=== PATIENT | female | born 1960 | race Caucasian/White ===

== ENCOUNTER → 2016-12-15 | Outpatient (CLI) | payer OTHER ==
--- NOTE | 2016-12-15 17:14 | Diagnostic Imaging Report ---
Bilateral screening mammogram The current study was also evaluated with a Computer Aided Detection (CAD) system. INDICATION: Screening. No current complaints stated on the questionnaire. COMPARISON: 11/14/2013. FINDINGS: The breasts are composed of heterogeneously dense parenchyma which may decrease mammographic sensitivity. There are scattered benign-appearing calcifications. Allowing for technique and positional differences, no suspicious change is seen. IMPRESSION: Dense breasts with no definite change. ACR BI-RADS Category 2: Benign findings. Result letter will be mailed to the patient. Note: At least 10% of breast cancer is not imaged by mammography. Dictated by: Dictated on workstation # [id number]
== END ==
LOC: RAD 09:56
PROVIDERS: ATTEND Nurse Practitioner
DX: Z12.31 Encounter for screening mammogram for malignant neoplasm of breast (principal)
CPT/HCPCS: 77067

== ENCOUNTER → 2018-10-25 | Outpatient (CLI) | payer SELFPAY ==
--- NOTE | 2018-10-25 19:01 | Diagnostic Imaging Report ---
PROCEDURE: CT head without contrast. TECHNIQUE: Multiple contiguous axial images were obtained through the brain without the use of intravenous contrast. INDICATION: Headaches and dizziness as well as blurred vision. No prior studies are available for comparison. Ventricles and sulci are within normal limits. No sulcal effacement, midline shift or hemorrhage is detected. Cisterns are patent. Visualized paranasal sinuses are clear. IMPRESSION: No acute intracranial process is detected. Dictated by: Dictated on workstation # [id number]
--- NOTE | 2018-10-25 19:01 | Diagnostic Imaging Report ---
PROCEDURE: MRI lumbar spine. TECHNIQUE: Multiplanar, multisequence MRI of the lumbar spine was performed without contrast. INDICATION: Low back pain and bilateral leg pain and numbness. COMPARISON: No prior studies are available for comparison. FINDINGS: Curvature and alignment of the lumbar spine is normal. The vertebral body heights are maintained. No geographic marrow lesion or acute compression fracture is identified. There is some disc desiccation and mild disc space narrowing at L4-5 level. Significant degenerative disc disease at L5-S1 level is seen with complete loss of the disc space as well as desiccation and endplate osteophyte formation. The conus is unremarkable at the L1 level. T12-L1: The central canal and neural foramina are widely patent. L1-2: Unremarkable. L2-3: Unremarkable. L3-4: There is some ligamentous thickening and facet changes present. Central canal remains widely patent. There is some [id number] bilateral neural foraminal narrowing due to broad-based disc/osteophyte complex. L4-5: There are hypertrophic facet changes and ligamentous thickening as well as broad-based disc/osteophyte complex. This does result in moderate central canal stenosis. There is also significant bilateral lateral recess stenosis and moderate left and mild right neural foraminal stenosis. L5-S1: Ligamentous thickening and facet changes with broad-based disc/osteophyte complex result in moderate trefoil stenosis to the canal. There is moderate bilateral lateral recess stenosis with significant bilateral neural foraminal stenosis. The paraspinous tissues are unremarkable. IMPRESSION: Lumbar spondylosis with multilevel central canal, lateral recess, and neural foraminal stenosis at the L4-5 and L5-S1 levels, as described. No acute compression fracture is seen. Dictated by: Dictated on workstation # [id number]
== END ==
LOC: RAD 14:06
PROVIDERS: ATTEND Nurse Practitioner Family
DX: M47.816 Spondylosis without myelopathy or radiculopathy, lumbar region (principal); M48.07 Spinal stenosis, lumbosacral region; H53.8 Other visual disturbances; M51.37 Other intervertebral disc degeneration, lumbosacral region; G43.909 Migraine, unspecified, not intractable, without status migrainosus
CPT/HCPCS: 70450; 72148

== ENCOUNTER → 2019-05-16 | Outpatient (CLI) | payer OTHER ==
--- NOTE | 2019-05-17 13:36 | Diagnostic Imaging Report ---
EXAMINATION: Digital mammogram bilateral screening. INDICATION: Screening. COMPARISON: This study was compared to the prior exams of 12/15/2016, 11/14/2013, and 10/11/2012. At this time, there are no current complaints. The current study was also evaluated with a Computer Aided Detection (CAD) system. 3-D tomosynthesis was also performed and reviewed. FINDINGS: The fibroglandular tissue in both breasts is heterogeneously dense. This does limit the sensitivity of this exam. Overall, there does not appear to have been any significant change when compared to the prior study. No primary or secondary sign of malignancy is noted. 3D tomographic images fail to show any sign of malignancy. IMPRESSION: 1. There is no evidence for malignancy. 2. The patient should have her annual bilateral screening mammogram on schedule in April of 2020. ACR BI-RADS Category 1: Negative. Result letter will be mailed to the patient. Note: At least 10% of breast cancer is not imaged by mammography. Dictated by: Dictated on workstation # [id number]
== END ==
LOC: RAD 09:36
PROVIDERS: ATTEND Obstetrics & Gynecology
DX: Z12.31 Encounter for screening mammogram for malignant neoplasm of breast (principal)
CPT/HCPCS: 77067

== ENCOUNTER 2023-02-12 21:02 | Emergency (ER) | payer SELFPAY ==
[~2023-02-12] VITALS: Ht 162.6 cm; Wt 52.6 kg
[2023-02-12 21:33] LABS: BASOPHILS % (AUTO) 0 % (0-10); EOSINOPHILS % (AUTO) 0 % (0-10); HEMATOCRIT 41 % (35-52); HEMOGLOBIN 13.5 g/dL (11.5-16.0); LYMPHOCYTES # (AUTO) 2.1 10^3/uL (1.0-4.0); LYMPHOCYTES % (AUTO) 29 % (12-44); MEAN CORPUSCULAR HEMOGLOBIN 30 pg (25-34); MEAN CORPUSCULAR HGB CONC 33 g/dL (32-36); MEAN CORPUSCULAR VOLUME 91 fL (80-99); MEAN PLATELET VOLUME 10.2 fL (9.0-12.2); MONOCYTES # (AUTO) 0.5 10^3/uL (0.0-1.0); MONOCYTES % (AUTO) 7 % (0-12); NEUTROPHILS # (AUTO) 4.7 10^3/uL (1.8-7.8); NEUTROPHILS % (AUTO) 64 % (42-75); PLATELET COUNT 339 10^3/uL (130-400); WHITE BLOOD COUNT 7.4 10^3/uL (4.3-11.0)
[2023-02-12 21:41] LABS: ALBUMIN 4.8 GM/DL (3.2-4.5); CHLORIDE 106 MMOL/L (98-107); POTASSIUM 3.7 MMOL/L (3.6-5.0); SODIUM 139 MMOL/L (135-145)
[2023-02-12 21:42] LABS: AMYLASE 54 U/L (25-125); CALCIUM 10.5 MG/DL (8.5-10.1)
[2023-02-12 21:43] LABS: GLUCOSE 105 MG/DL (70-105); TOTAL PROTEIN 7.6 GM/DL (6.4-8.2)
[2023-02-12 21:44] LABS: CARBON DIOXIDE 12 MMOL/L (21-32)
[2023-02-12 21:45] LABS: BILIRUBIN,TOTAL 0.7 MG/DL (0.1-1.0)
[2023-02-12 21:47] LABS: ALKALINE PHOSPHATASE 84 U/L (40-136); CREATININE SERUM 1.17 MG/DL (0.60-1.30); GFR ESTIMATED 53
[2023-02-12 21:48] LABS: BUN/CREATININE RATIO 14
[2023-02-12 21:50] LABS: ALANINE AMINOTRANSFERASE 21 U/L (0-55)
[2023-02-12 21:51] LABS: LIPASE 17 U/L (8-78)
[2023-02-12] MEDS ORDERED: ONDANSETRON 4 MG/2 ML (SDV) Z0FRAN IVP ONE (22:00)
[2023-02-12] MEDS ORDERED: LACTATED RINGERS 1,000 ML IV ONE (22:00)
[2023-02-12 22:09] LABS: CLARITY,URINE CLEAR; COLOR,URINE YELLOW; GLUCOSE, URINE (UA) NEGATIVE (NEGATIVE); KETONES,URINE 3+ (NEGATIVE); LEUKOCYTE ESTERASE ,URINE NEGATIVE (NEGATIVE); NITRITE,URINE NEGATIVE (NEGATIVE); PROTEIN,URINE 2+ (NEGATIVE)
--- NOTE | 2023-02-12 22:26 | ED General ---
General Chief Complaint: Allergic Reaction Stated Complaint: POSS ALLERGIC REACTION Nursing Triage Note: PT AMB TO RM 3 W C/O POSS ALLERGIC REACTION D/T SMELLING LAUNDRY DETERGENT AND WOOD WHILE AT HER MOTHERS HOUSE. PT ADMIN EPI PEN IN R THIGH 20-25 MINS AGO WHEN SHE FELT LIKE HER THROAT WAS CLOSING. PT REPORTS IT IS HARD TO SWALLOW AT THIS TIME, NO RESP DISTRESS NOTED. PT ADDITIONALY C/O ABD PAIN X1 WK. A&OX4. Source of Information: Patient History of Present Illness Date Seen by Provider: Feb 12, 2023 Allergies and Home Medications Allergies Coded Allergies: No Allergy Information Available (Unverified , 02/12/23) Past Qgbxqvu-Kydixm-Lrvdwo Hx Patient Social History Tobacco Use?: No Use of E-Cig and/or Vaping dev: No Substance use?: No Alcohol Use?: No Past Medical History Surgery/Hospitalization HX: ALPHA GAL Physical Exam Vital Signs Vital Signs - First Documented 02/12/23 21:06 Temp 36.6 Pulse 124 Resp 22 B/P (MAP) 121/67 (85) Pulse Ox 98 O2 Delivery Room Air Capillary Refill : Less Than 3 Seconds Height, Weight, BMI Height: '" Weight: lbs. oz. kg; 19.00 BMI Method: Progress/Results/Core Measures Suspected Sepsis SIRS Temperature: Pulse: 124 Respiratory Rate: 22 Laboratory Tests 02/12/23 21:20: White Blood Count 7.4 Blood Pressure 121 /67 Mean: 85 Laboratory Tests 02/12/23 21:20: Creatinine 1.17, Platelet Count 339, Total Bilirubin 0.7 Results/Orders Lab Results Laboratory Tests Test 02/12/23 21:20 02/12/23 22:01 Range/Units White Blood Count 7.4 4.3-11.0 10^3/uL Red Blood Count 4.51 3.80-5.11 10^6/uL Hemoglobin 13.5 11.5-16.0 g/dL Hematocrit 41 35-52 % Mean Corpuscular Volume 91 80-99 fL Mean Corpuscular Hemoglobin 30 25-34 pg Mean Corpuscular Hemoglobin Concent 33 32-36 g/dL Red Cell Distribution Width 11.9 10.0-14.5 % Platelet Count 339 130-400 10^3/uL Mean Platelet Volume 10.2 9.0-12.2 fL Immature Granulocyte % (Auto) 0 % Neutrophils (%) (Auto) 64 42-75 % Lymphocytes (%) (Auto) 29 12-44 % Monocytes (%) (Auto) 7 0-12 % Eosinophils (%) (Auto) 0 0-10 % Basophils (%) (Auto) 0 0-10 % Neutrophils # (Auto) 4.7 1.8-7.8 10^3/uL Lymphocytes # (Auto) 2.1 1.0-4.0 10^3/uL Monocytes # (Auto) 0.5 0.0-1.0 10^3/uL Eosinophils # (Auto) 0.0 0.0-0.3 10^3/uL Basophils # (Auto) 0.0 0.0-0.1 10^3/uL Immature Granulocyte # (Auto) 0.0 0.0-0.1 10^3/uL Sodium Level 139 135-145 MMOL/L Potassium Level 3.7 3.6-5.0 MMOL/L Chloride Level 106 98-107 MMOL/L Carbon Dioxide Level 12 L 21-32 MMOL/L Anion Gap 21 H 5-14 MMOL/L Blood Urea Nitrogen 16 7-18 MG/DL Creatinine 1.17 0.60-1.30 MG/DL Estimat Glomerular Filtration Rate 53 BUN/Creatinine Ratio 14 Glucose Level 105 70-105 MG/DL Calcium Level 10.5 H 8.5-10.1 MG/DL Corrected Calcium 8.5-10.1 MG/DL Total Bilirubin 0.7 0.1-1.0 MG/DL Aspartate Amino Transf (AST/SGOT) 23 5-34 U/L Alanine Aminotransferase (ALT/SGPT) 21 0-55 U/L Alkaline Phosphatase 84 40-136 U/L Total Protein 7.6 6.4-8.2 GM/DL Albumin 4.8 H 3.2-4.5 GM/DL Amylase Level 54 25-125 U/L Lipase 17 8-78 U/L Urine Color YELLOW Urine Clarity CLEAR Urine pH 6.0 5-9 Urine Specific [place] >=1.030 1.016-1.022 Urine Protein 2+ H NEGATIVE Urine Glucose (UA) NEGATIVE NEGATIVE Urine Ketones 3+ H NEGATIVE Urine Nitrite NEGATIVE NEGATIVE Urine Bilirubin 1+ H NEGATIVE Urine Urobilinogen 0.2 < = 1.0 MG/DL Urine Leukocyte Esterase NEGATIVE NEGATIVE Urine RBC (Auto) 3+ H NEGATIVE Urine RBC 5-10 H /HPF Urine WBC RARE /HPF Urine Squamous Epithelial Cells 10-25 H /HPF Urine Crystals NONE /LPF Urine Amorphous Sediment FEW MIKO URATES H /LPF Urine Bacteria TRACE /HPF Urine Casts PRESENT /LPF Urine Hyaline Casts 5-10 H /LPF Urine Mucus MODERATE H /LPF Urine Culture Indicated NO My Orders Orders - JOSÉ TORRES DO Ed Iv/Invasive Line Start (02/12/23 21:22) Monitor-Rhythm Ecg Trace Only (02/12/23 21:22) Amylase (02/12/23 21:22) Cbc With Automated Diff (02/12/23 21:22) Comprehensive Metabolic Panel (02/12/23 21:22) Lipase (02/12/23 21:22) Ua Culture If Indicated (02/12/23 21:22) Ondansetron Injection (Zofran Injectio (02/12/23 22:00) Ed Iv/Invasive Line Start (02/12/23 21:59) Lactated Ringers (Lr 1000 Ml Iv Solution (02/12/23 22:00) Ct Abdomen/Pelvis Wo (02/12/23 21:59) Medications Given in ED Current Medications Medications Dose Ordered Sig/Gustavo Route Start Time Stop Time Status Last Admin Dose Admin Lactated Ringer's 1,000 ml @ 0 mls/hr Q0M ONCE IV 02/12/23 22:00 02/12/23 22:01 DC 02/12/23 22:35 0 MLS/HR Ondansetron HCl 4 mg ONCE ONCE IVP 02/12/23 22:00 02/12/23 22:01 DC 02/12/23 22:34 4 MG Vital Signs/I&O 02/12/23 21:06 Temp 36.6 Pulse 124 Resp 22 B/P (MAP) 121/67 (85) Pulse Ox 98 O2 Delivery Room Air Capillary Refill : Less Than 3 Seconds Blood Pressure Mean: 85 Departure Impression Primary Impression: Abdominal pain Additional Impressions: Nausea vomiting and diarrhea Cannabis use disorder Microscopic hematuria Disposition: HOME, SELF-CARE Condition: Improved Departure-Patient Inst. Decision time for Depature: 23:59 Referrals: [facility] (PCP/Family) Primary Care Physician Patient Instructions: Abdominal Pain, Adult ED, Blood in Urine (Hematuria), Adult ED, Cannabis hyperemesis syndrome, Nausea and Vomiting, Adult ED, Probiotics Add. Discharge Instructions: CLEAR LIQUIDS--WATER AND GATORADE BRATS DIET--BANANAS, RICE, APPLESAUCE, TOAST, SALTINES--GLUTEN FREE NO MARIJUANA PRODUCTS ACIDOPHILUS PROBIOTIC 2 PILLS 4 TIMES A DAY FOLLOW UP WITH YOUR DR NEXT WEEK FOR FURTHER CARE--CALL IN THE MORNING TO SCHEDULE AN APPOINTMENT All discharge instructions reviewed with patient and/or family. Voiced understanding. Scripts Pantoprazole Sodium (Protonix) 40 Mg Tablet.dr 40 MG PO DAILY, #15 TAB Prov: JOSÉ TORRES DO 02/13/23 Dicyclomine HCl (Dicyclomine HCl) 20 Mg Tablet 20 MG PO Q6H for Abdominal Pain, #20 TAB Prov: JOSÉ TORRES DO 02/13/23 Ondansetron (Ondansetron Odt) 8 Mg Tab.rapdis 8 MG PO Q6H, #10 TAB Prov: JOSÉ TORRES DO 02/13/23 JOSÉ TORRES DO Feb 12, 2023 22:26
[2023-02-12 22:27] LABS: BILIRUBIN,URINE 1+ (NEGATIVE)
[2023-02-12 22:31] LABS: BACTERIA,URINE TRACE /HPF; WBC,URINE RARE /HPF
[2023-02-12 22:33] LABS: AMORPHOUS SEDIMENT,UR FEW AMOR URATES /LPF
[2023-02-13] MEDS ORDERED: DICY20TA PO (00:11)
[2023-02-13] MEDS ORDERED: PANT40TA2 PO (00:11)
[2023-02-13] MEDS ORDERED: ONDA8TAB13 PO (00:11)
[2023-02-13 00:20] VITALS: BP 124/75
[2023-02-13 00:24] LABS: AMPHETAMINE SCREEN, URINE NEGATIVE (NEGATIVE); BARBITURATE SCREEN URINE NEGATIVE (NEGATIVE); BENZODIAZEPINES SCREEN URINE NEGATIVE (NEGATIVE); CANNABINOID SCREEN, URINE NEGATIVE (NEGATIVE); COCAINE SCREEN URINE NEGATIVE (NEGATIVE); METHADONE STAT NEGATIVE (NEGATIVE); OPIATE SCREEN URINE NEGATIVE (NEGATIVE); OXYCODONE STAT NEGATIVE (NEGATIVE); PROPOXYPHENE STAT NEGATIVE (NEGATIVE); TRICYCLIC ANTIDEPRESSANTS SCRE NEGATIVE (NEGATIVE)
--- NOTE | 2023-02-13 08:16 | Diagnostic Imaging Report ---
PROCEDURE: CT abdomen and pelvis without contrast. TECHNIQUE: Multiple contiguous axial images were obtained through the abdomen and pelvis without the use of intravenous contrast. Auto Exposure Controls were utilized during the CT exam to meet ALARA standards for radiation dose reduction. INDICATION: Pain, nausea and vomiting. Noncontrasted CT abdomen and pelvis performed IV contrast was requested but refused by the patient. No priors. The lung bases clear. Liver, gallbladder, bile ducts, spleen, adrenals and pancreas unremarkable. There is no opaque urinary tract calculus disease. There is no hydroureteronephrosis. There is no ascites, abscess, hematoma or acute fluid collection. There is no pneumatosis or free gas. There are no focal inflammatory changes, the appendix not clearly visualized but no findings to suggest underlying appendicitis. There is no diverticulitis. No findings of a volvulus. No hernia. The aorta nonaneurysmal. IMPRESSION: No obstructive features, inflammatory processes, ascites fluid collections or acute abnormalities found. Agree with preliminary. Dictated by: Dictated on workstation # [id number]
== END 2023-02-13 00:20 | disposition home or self-care (01) ==
LOC: EDUNIT# 21:02 → ER 21:06
DX: R10.9 Unspecified abdominal pain (principal); R11.2 Nausea with vomiting, unspecified; R19.7 Diarrhea, unspecified; F12.90 Cannabis use, unspecified, uncomplicated; R31.29 Other microscopic hematuria
CPT/HCPCS: 36415; 74176; 80053; 80306; 81000; 82150; 83690; 85025; 93041